=== PATIENT | male | born 1980 | race African-American/Black ===

== ENCOUNTER 2019-07-30 18:57 | Emergency (ER) | payer MEDICAID, OTHER ==
[~2019-07-30] VITALS: Ht 185.4 cm; Wt 172.4 kg
[2019-07-30 19:43] VITALS: BP 147/98
[2019-07-30 20:21] LABS: Basophils # (auto) 0 uL; Basophils % (auto) 0.4 % (0.0-2.0); Eosinophils # (auto) 0.1 uL; Eosinophils % (auto) 1.4 % (0.0-7.0); Hematocrit 42.4 % (41.0-53.0); Hemoglobin 13.6 g/dL (13.5-17.5); Lymphocytes # (auto) 1.9 uL; Mean Corpuscular Volume 84.6 fL (80.0-100.0); Monocytes # (auto) 0.5 uL; Monocytes % (auto) 11.5 % (0.0-12.0); Neutrophils # (auto) 2.1 uL; Neutrophils % (auto) 45.7 % (37.0-80.0); Nucleated Red Blood Cells % 0.5 %; Platelet Count (auto) 239 10^3/uL (140-450); Red Blood Cells 5.02 10^6/uL (4.5-5.90); Red Cell Distribution Width 16.2 % (11.8-14.3); White Blood Cell 4.5 10^3/uL (4.4-10.8)
[2019-07-30 20:28] LABS: Albumin 3.2 g/dL (3.4-5.0); Calcium 8.4 mg/dL (8.5-10.1); Potassium 3.5 mmol/L (3.5-5.1)
[2019-07-30 20:32] LABS: BUN/Creatinine Ratio 10.3; Bilirubin, Total 0.5 mg/dL (0.2-1.0); Total Protein 7.5 g/dL (6.4-8.2)
== END 2019-07-31 05:55 | disposition left against medical advice (07) ==
LOC: ER 19:07
DX: R79.9 Abnormal finding of blood chemistry, unspecified (principal); Z53.21 Procedure and treatment not carried out due to patient leaving prior to being seen by health care provider
CPT/HCPCS: 36415; 80053; 85025